=== PATIENT | male | born 1995 | race Caucasian/White ===

== ENCOUNTER 2024-11-17 16:38 | Outpatient (OUT) | payer BC, SELFPAY | END 2024-11-17 16:39 | disposition home or self-care (01) | LOC: LAB 16:41 | PROVIDERS: PCP Family Medicine; Visit Provider Family Medicine | DX: M25.539 Pain in unspecified wrist (principal) | CPT/HCPCS: 36415; 86695; 86696 ==

== ENCOUNTER 2025-07-06 07:56 | Outpatient (OUT) | payer BC, SELFPAY ==
--- OUTSIDE RECORDS SUMMARY | 2025-07-06 08:04 | XMS_ITS | Clinical Summary ---
Author Organization [facility] tem Address [id number] [address] [place] [address] Care Team Providers Care Natural Resources Extension Educator Name Role Phone Fab Thao MD Primary Care Provider [phone] Allergies No known active allergies Medications MedicationSigDispense QuantityRefillsLast FilledStart DateEnd DateStatus ondansetron ODT (ZOFRAN-ODT) 4 mg disintegrating tablet Dissolve 1 tablet (4 mg total) on tongue every 8 (eight) hours as needed for nausea for up to 10 doses. 10 tablet 09/15/2019Active Social History Tobacco UseTypesPacks/DayYears UsedDateSmoking Tobacco: Every DayCigarettes0.3 0.5Smokeless Tobacco: NeverAlcohol UseStandard Drinks/WeekCommentsNot Currently0 (1 standard drink = 0.6 oz pure alcohol)ChildcareAnswerDate RecordedChildcare Lueozfo3202/23/2019EmploymentAnswerDate KrxfxiejQzlmbczpbhIshzuja12/12/2019Purpose - LifeAnswerDate RecordedPurpose and direction in ddktTzzwfyt72/11/2021Sex and Gender InformationValueDate RecordedSex Assigned at BirthNot on fileLegal Sex Male04/19/2015 11:53 AM EDTGender IdentityNot on fileSexual OrientationNot on file Last Filed Vital Signs Vital SignReadingTime TakenCommentsBlood Rkinyaeg782/76009/15/2019 6:12 PM EST Gzlzd348209/15/2019 6:12 PM BAVZainbaixwjg86.8 ??C (98.3 ??F)09/15/2019 5:07 PM ESTRespiratory Hjib352309/15/2019 6:12 PM ESTOxygen Zxydrxegdp323%09/15/2019 6:12 PM ESTInhaled Oxygen Concentration--Wygpsv65.2 kg (212 lb)09/15/2019 5:07 PM EST Fgssjq820.7 cm (5' 8 )09/15/2019 5:07 PM ESTBody Mass Index32.23009/15/2019 5:07 PM EST Plan of Treatment Health MaintenanceDue DateLast DoneCommentsDepression Dfjknavaa82/24/2009Tobacco Xhvcbnmfj13/24/2009dult BMI Cxibffzhu55/24/2015DTaP,Tdap and Td Vaccines (1 - Tdap)2016Influenza Ahrdoti5305/15/2025 Medical Devices Not on file Insurance Care Teams Team MemberRelationshipSpecialtyStart DateEnd Date Fab Thao MD [facility] - [facility]06/05/18
[2025-07-06 08:33] LABS: Hematocrit 48.0 % (42.0-54.0); Hemoglobin 16.1 g/dL (14.0-18.0); Immature Granulocytes Abs Auto 0.01 10^3/uL (0.00-0.03); Immature Granulocytes Pct Auto 0.1 % (0.0-0.5); Lymphocytes Absolute Auto 2.5 10^3/uL (1.2-3.8); Mean Corpuscular HGB Conc 33.5 g/dL (29.9-35.2); Mean Corpuscular Hemoglobin 31.1 pg (25.9-34.0); Mean Corpuscular Volume 92.8 fL (80.0-94.0); Platelet Count 310 10^3/uL (150-450); Red Blood Count 5.17 10^6/uL (4.70-6.10); White Blood Count 6.9 10^3/uL (4.0-11.0)
--- NOTE | 2025-07-06 08:38 | XR_ITS ---
The [address] [address] Patient Name: CECE LINDQUIST MRN: [id number] date: 1995 Sex: M Assigned Patient Location: LAB Current Patient Location: LAB Accession/Order Number: [id number] Exam Date: 07/06/2025 08:50 Report Date: 07/06/2025 09:40 At the request of: RAMANA MAURO MD Procedure: XR cervical spine 2-3V CERVICAL SPINE - 3 views: CLINICAL HISTORY: Chronic bilateral arm tingling, blurred vision and headaches. COMPARISON: None AP, lateral and odontoid views were obtained. There is straightening of the normal cervical lordosis. There is no evidence of compression fracture or displacement. The disc spaces are uniform. No hypertrophy is seen. The atlantoaxial relationship is maintained. There is no prevertebral soft tissue swelling. XR/XR cervical spine 2-3V IMPRESSION: LOSS OF NORMAL CERVICAL LORDOSIS. NO ACUTE BONY FINDINGS. Impression dictated by: Moira Patterson M.D. 07/06/2025 9:40 AM Dictation Location: [place] [address] Electronically authenticated by: [id number] Y Date: 07/06/2025 09:40
[2025-07-06 08:54] LABS: Alanine Aminotransferase 24 U/L (16-63); Albumin Globulin Ratio 1.5; Albumin Level 4.2 g/dL (3.4-5.0); Alkaline Phosphatase 53 U/L (46-116); Anion Gap 11.7; Aspartate Amino Transferase 9 U/L (15-37); Blood Urea Nitrogen 10.0 mg/dL (7.0-18.0); Calcium 8.7 mg/dL (8.5-10.1); Carbon Dioxide 28.4 mmol/L (21.0-32.0); Chloride 103 mmol/L (98-107); Cholesterol 173 mg/dL (<=200); Estimated GFR (African America >60 (>=60 mL/min/1.73m^2); Estimated GFR (Non-African Ame >60 (>=60 mL/min/1.73m^2); Free T3 2.64 pg/mL (2.18-3.98); Globulin 2.8 g/dL; Glucose 92 mg/dL (74-106); HDL Cholesterol 55 mg/dL (40-60); Potassium 4.1 mmol/L (3.5-5.1); Sodium 139 mmol/L (136-145); Thyroid Stimulating Hormone 1.130 uIU/mL (0.358-3.740); Total Protein 7.0 g/dL (6.4-8.2); Triglycerides 113 mg/dL (<=150); VLDL CHOLESTEROL 22.6 mg/dL
== END 2025-07-06 07:57 | disposition home or self-care (01) ==
LOC: LAB 08:01
PROVIDERS: PCP Family Medicine; Visit Provider Family Medicine
DX: H53.2 Diplopia (principal); R41.82 Altered mental status, unspecified; R20.2 Paresthesia of skin
CPT/HCPCS: 36415; 72040; 80053; 80061; 82533; 83036; 83525; 84436; 84443; 84481; 85025

== ENCOUNTER 2025-07-18 14:14 | Outpatient (OUT) | payer BC, SELFPAY ==
--- OUTSIDE RECORDS SUMMARY | 2025-07-05 08:45 | XMS_ITS ---
Author Organization [facility] in [place] Address [address] [place] [address] Care Team Providers Care Clinical Supervisor Name Role Phone Grant Mauro Primary Care Provider Allergies No Known Allergies Results Component Value Reference Range Notes CORTISOL AM Reviewed date:07/08/2025 03:25:45 PM Interpretation: Performing Lab: Notes/Report: [facility] , Cortisol - AM 11.6 6.2-19.4 ug/dL Performed at: - [facility] [address] [id number] Poultry Boner: Yasmany Sauceda PhD, Phone: [phone] Performing Lab: see note LC - [facility] LBXR cervical spine 2-3V Reviewed date:07/06/2025 12:20:45 PM Interpretation: Performing Lab: Notes/Report: Source Facility: [place] [address] [place] [address] XRay Report Signed Patient: CECE CUELLO MR#: [id number] : 1995 Acct:[id number] Age/Sex: 30 / M ADM Date: 07/06/25 Loc: LAB Attending Dr: Ramana Mauro M.D. Ordering Physician: Ramana Mauro M.D. Date of Service: 07/06/25 Procedure(s): XR cervical spine 2-3V Accession Number(s): [id number] cc: Ramana Mauro M.D. [place] [id number] Patient Name: CECE CUELLO MRN: [id number] date: 1995 Sex: M Assigned Patient Location: LAB Current Patient Location: LAB Accession/Order Number: [id number] Exam Date: 07/06/2025 08:50 Report Date: 07/06/2025 09:40 At the request of: RAMANA MAURO MD Procedure: XR cervical spine 2-3V CERVICAL SPINE - 3 views: CLINICAL HISTORY: Chronic bilateral arm tingling, blurred vision and headaches. COMPARISON: None AP, lateral and odontoid views were obtained. There is straightening of the normal cervical lordosis. There is no evidence of compression fracture or displacement. The disc spaces are uniform. No hypertrophy is seen. The atlantoaxial relationship is maintained. There is no prevertebral soft tissue swelling. XR/XR cervical spine 2-3V IMPRESSION: LOSS OF NORMAL CERVICAL LORDOSIS. NO ACUTE BONY FINDINGS. Impression dictated by: Moira Patterson M.D. 07/06/2025 9:40 AM Dictation Location: [place] [address] Electronically authenticated by: [id number] Y Date: 07/06/2025 09:40 Dictated By: Moira Patterson M.D. Signed By: 07/06/2543 DD/ 9 TD/TT: Stack Yield Engineer: REASON FOR VISIT Cognitive Issues, Slow ability to think Medications Medication SIG (Take, Route, Frequency, Duration) Notes Start Date End Date Status Adderall 5 MG 1 tablet Orally Twice a day 5Active Social History Tobacco Use: Social History Observation Description Date Details (start date - stop date) Never Smoker NA - NA Tobacco Control (Standard) Question Answer Notes Tobacco use: Nonsmoker AUDIT-C (Standard) Question Answer Notes Did you have a drink containing alcohol in the p ast year? No Obvgjq5UbomulmriwjgsxZxhyygmgOoqhzrm Notes: Vapes daily Problems Problem Type SNOMED Code ICD Code Onset Dates Problem Status W/U Status Risk Notes Problem Double vision (34070796) Double vision (H 53.2) ActiveconfirmedProblemAltered mental status (065653076)Altered mental status (R41.82)ActiveconfirmedProblemParesthesia (95653368)Paresthesia (R20.2)Active confirmed Vital Signs Weight 170.0 lbs 07/05/2025 Height 67 in 07/05/2025 Blood pressure systolic 138 mm Hg 07/05/20 25 Blood pressure diastolic 82 mm Hg 025 BMI 26.62 kg/m2 07/05/2025 Encounters Encounter Location Date Provider Diagnosis [facility] [address] [place] [address] 07/05/2025 Grant Mauro Double vision H53.2 ; Altered mental status R41.82 and Paresthesia R20.2 Assessments Encounter Date Diagnosis (ICD Code) Assessment Notes Treatment Notes Treatment Clinical Notes Section Notes 07/05/2025 Double vision (ICD-10 - H53.2) 07/05/2025ltered mental status (ICD-10 - R41.82)07/05/2025Paresthesia (ICD-10 - R20.2) Plan Of Treatment Pending Test Test Name Order Date HEMOGLOBIN A1C (GLYCO) 07/05/2025 INSULIN, TOTAL 07/05/2025 LIPID PANEL (CHOL/TRIG/HDL/LDL) 07/05/20 25 MRI BRAIN WO W CON 07/05/2025 THYROID PANEL (T4/TSH/FREE T3) 5 CMP (COMP MET QUEEN) w/eGFR CKD-EPI 2024 CBC WITH DIFF 07/05/2025 Progress Notes * Cece CUELLO XDOB:[birth year] (30 yo M)Acc No.[id number]:07/05/2025 Progress Note Patient: Cece TAN :?Ramana Mauro ([facility]), MDDOB:1995???Age: 30 Y???Sex:MaleDate:07/05/2025Phone:[phone]:[address], [address] [facility], [place], [place]Awnwp In:01:44 PM ESTCheck Out:02:39 PM EST Subjective: * Chief Complaints: * C ognitive IssuesSlow ability to think * HPI: ???General:? diffiulty focusing and concentrating -? notices it more since has been clean from thc has episodse - doubmita dyeron and sig clayton. * ROS: ???EENT:?hearing changes?denies, denies.?visual changes?denies, denies.?non-healing mouth sores?denies, denies.?swollen glands or neck lumps denies, denies.?hoarseness?denies, denies.?sore throat?denies, denies.?difficulty swallowing?denies, denies.?nose bleeds?denies, denies.?nasal congestion?denies, denies.?ear ache?denies, denies.?ear discharge?denies, denies. ringing in ears?denies, denies.?light sensitivity?denies, denies.?eye pain denies, denies.?blurring?denies, denies.?eye irritation?denies, denies.?double vision?denies, denies.?vision loss?denies, denies.?General/Constitutional:?Sweats:?Denies, Denies.?Fatigue?denies, denies. Sleep problems?denies, denies.?Anorexia?denies, denies.?Malaise?denies, denies.?Weight loss?denies, denies.?Fatigue or Weakness?denies, denies.?Fever or Chills?denies, denies.?Cardiovascular:?Shortness of Breath w/lying flat?denies, denies.?Light headedness/dizziness?denies, denies.?Chest tightness/ heavy pressure?denies, denies. Swelling of legs, ankles, or feet?denies, denies.?Waking up with shortness of breath denies, denies.?Chest pain?denies, denies.?Palpitations?denies, denies. Weight gain?denies, denies.?Respiratory:?Chronic or frequent cough?denies, denies.?Coughing upblood?denies, denies.?Difficulty breathing?denies, denies.?Productive cough denies, denies.?Snoring?denies, denies.?Shortness of breath that awakens from sleep (PND)?denies, denies.?Chest pain?denies, denies.?Sputum production?denies, denies.?Wheezing?denies, denies.?Musculoskeletal:?Joint pain?denies, denies.?Joint Fluid?denies, denies.?Back pain?denies, denies.?Knee pain?denies, denies.?Neck pain?denies, denies.?Joint Stiffness?denies, denies.?Muscle cramps?denies, denies. Weakness of muscles?denies, denies.?Arthritis?denies, denies.?Muscle aches denies, denies.?Pain in shoulder(s)?denies, denies.?Swollen joints?denies, denies.? * Active Problem List F90.9 ADHD Modified On:11/17/2024/U Status:ulwgjhxzcO62.539Wrist pain Modified On:11/17/2024/U Status:iwgtfdwxiO94.2Double vision Modified On:07/05/2025/U Status:iehyueqfbC06.82Altered mental status Modified On:07/05/2025/U Status:rlzcvgrplL37.2Paresthesia Modified On:07/05/2025/U Status:confirmed * Medical History: * Surgical History: N o Surgical History documented. * Hospitalization/Major Diagno stic Procedure: D enies Past Hospitalization * Family History: F ather: alive. M other: alive. B rother(s): alive. S ister(s): alive. 1 brother(s) , 2 sister(s) - healthy. . Strokes run in the family. * Social History: ???Tobacco Use:?Tobacco Control (Standard)?Tobacco use:?Nonsmoker ?Electronic Cigarette use?Current user?Yes vape ???Drug/Alcohol:?AUDIT-C (Standard)?Did you have a drink containing alcohol in the past year??No ?Points?0 ?Interpretation?Negative ???Vapes daily. * Medications: T akingAdderall(Amphetamine-Dextroamphetamine) 5 MG Tablet 1 tablet Orally Twice a day Taking Adderall(Amphetamine-Dextroamphetamine) 5 MG Tablet 1 tablet Orally Twice a day DiscontinuedpredniSONE 20 MG Tablet 3 tablets Orally Once a day Medication List reviewed and reconciled with the patientDiscontinued predniSONE 20 MG Tablet 3 tablets Orally Once a day Medication List reviewed and reconciled with the patient * Allergies: N .K.D.A.no[Allergies Verified] Objective: * Vitals: W t:170.0lbs, Ht: 67 in, BP:138/82mm Hg, BMI:26.62Index, Ht-cm: 170.18 cm, Wt-k.11 kg. * Examination: ???Physical Exam: ?GENERAL:?well developed, well nourished, in no acute distress , well developed, well nourished, in no acute distress.?HEAD:?normocephalic/atraumatic , normocephalic/atraumatic. ?EYES:?pupils equal, round and reactive to light, conjunctivae and sclerae normal , pupils equal, round and reactive to light, conjunctivae and sclerae normal. ?EARS:?no deformity or lesion of external ear, canals and TM appear normal bilaterally, TM's intact, not inflamed with normal light reflex, hearing grossly normal to conversational speech , no deformity or lesion of external ear, canals and TM appear normal bilaterally, TM's intact, not inflamed with normal light reflex, hearing grossly normal to conversational speech.?NOSE:?no deformity, discharge, inflammation, or lesions , no deformity, discharge, inflammation, or lesions.?MOUTH:?mucous membranes moist, normal oropharynx and posterior pharynx without lesions or exudates, tongue normal, dentition normal , mucous membranes moist, normal oropharynx and posterior pharynx without lesions or exudates, tongue normal, dentition normal.?NECK:?neck supple, no masses or palpable cervical nodes, trachea midline, thyroid without nodules, masses, tenderness, or enlargement , neck supple, no massesor palpable cervical nodes, trachea midline, thyroid without nodules, masses, tenderness, or enlargement.?CHEST:?no chest wall deformity, no chest wall tenderness ,no chest wall deformity, no chest wall tenderness.?LUNGS:?normal respiratory effort and clear to auscultation, no wheezes, rales, or rhonchi, good air exchange , normal respiratory effort and clear to auscultation, no wheezes, rales, or rhonchi, good air exchange.?CARDIO:?regular rate and rhythm, normal S1 and S2, nor murmur, rub, or gallop , regular rate and rhythm, normal S1 and S2, nor murmur, rub, or gallop.?PULSES:?normal capillary refill , normal capillary refill. ?ABDOMEN:?soft, non-distended, non-tender, no masses , soft, non-distended, non-tender, no masses.?MUSCULOSKELETAL:?no deformity or scoliosis noted, normal range of motion, joints normal, no erythema, edema, effusion, or ecchymosis , no deformity or scoliosis noted, normal range of motion, joints normal, no erythema, edema, effusion, or ecchymosis.?EXTREMITY:?no clubbing, cyanosis, edema, or deformity withnormal ROM in both upper and lower bilateral extremities , no clubbing, cyanosis, edema, or deformity with normal ROM in both upper and lower bilateral extremities.?NEUROLOGIC:?grossly normal , grossly normal.?SKIN:?no rashes, ulcerations, or suspicious lesions , no rashes, ulcerations, or suspicious lesions.?LYMPH NODES:?no cervical adenopathy, nodes normal , no cervical adenopathy, nodes normal.?MENTAL STATUS:?alert and oriented x3, normal mood and affect , alert and oriented x3, normal mood and affect.? Assessment: * Assessment: 1.?Double vision - H53.2 (Primary)???2.?Altered mental status - R41.82&#160 ;??3.?Paresthesia - R20.2??? Plan: * Treatment: ?LAB: HEMOGLOBIN A1C (GLYCO) ?LAB: INSULIN, TOTAL ?LAB: LIPID PANEL (CHOL/TRIG/HDL/LDL) ?LAB: THYROID PANEL (T4/TSH/FREE T3) ?LAB: CMP (COMP MET QUEEN) w/eGFR CKD-EPI ?LAB: CBC WITH DIFF ?LAB: CORTISOL AM (Collection Date & Time - 07/06/2025 08:21 AM) ?Imaging: MRI BRAIN WO W CON* COncerning for MS flare ?Imaging: XR cervical spine 2-3V (Performed Date - 07/06/2025)2.?Altered mental status?LAB: HEMOGLOBIN A1C (GLYCO) ?LAB: INSULIN, TOTAL ?LAB: LIPID PANEL (CHOL/TRIG/HDL/LDL) ?LAB: THYROID PANEL (T4/TSH/FREE T3) ?LAB: CMP (COMP MET QUEEN) w/eGFR CKD-EPI ?LAB: CBC WITH DIFF ?Imaging: MRI BRAIN WO W CON* COncerning for MS flare ?Imaging: XR cervical spine 2-3V (Performed Date - 07/06/2025)3.?Paresthesia ?LAB: HEMOGLOBIN A1C (GLYCO) ?LAB: INSULIN, TOTAL ?LAB: LIPID PANEL (CHOL/TRIG/HDL/LDL) ?LAB: THYROID PANEL (T4/TSH/FREE T3) ?LAB: CMP (COMP MET QUEEN) w/eGFR CKD-EPI ?LAB: CBC WITH DIFF ?Imaging: MRI BRAIN WO W CON* COncerning for MS flare ?Imaging: XR cervical spine 2-3V (Performed Date - 07/06/2025) * Labs: * L ab: CORTISOL AM (Collection Date & Time - 07/06/2025 08:21 AM) * Procedure Codes: * Preventive Medicine: ??Screenings/Counseling:?BMI ACTION PLAN?Above Normal BMI Follow-up?Dietary management education, guidance, and counseling * * Sign off status: CompletedVisit Status:?CHK (Check Out) true * Provider: Claudia Mauro (TTC)MD Date: 1 Generated for Printing/Faxing/eTransmitting on:?07/18/2025 02:19 PM EST History and Physical Notes * HPI (History of Present Illness) CategorySub-CategoryDetailNotesCategory NotesGeneral diffiulty focusing and concentrating - notices it more since has been clean from thc has episodse - doubje vison and sig weaknes Examination CategorySub-CategoryDetailNotesCategory NotesPhysical ExamGENERAL:well developed, well nourished, in no acute distress , well developed, well nourished, in no acute distressHEAD:normocephalic/atraumatic , normocephalic/atraumaticEYES:pupils equal, round and reactive to light, conjunctivae and sclerae normal , pupils equal, round and reactive to light, conjunctivae and sclerae normalEARS:no deformity or lesion of external ear, canals and TM appear normal bilaterally, TM's intact, not inflamed with normal light reflex, hearing grossly normal to conversational speech , no deformity or lesion of external ear, canals and TM appear normal bilaterally, TM's intact, not inflamed with normal light reflex, hearing grossly normal to conversational speechNOSE:no deformity, discharge, inflammation, or lesions , no deformity, discharge, inflammation, or lesionsMOUTH:mucous membranes moist, normal oropharynx and posterior pharynx without lesions or exudates, tonguenormal, dentition normal , mucous membranes moist, normal oropharynx and posterior pharynx without lesions or exudates, tongue normal, dentition normalNECK:neck supple, no masses or palpable cervical nodes, trachea midline, thyroid without nodules, masses, tenderness, or enlargement , neck supple, no masses or palpable cervical nodes, trachea midline, thyroid without nodules, masses, tenderness, or enlargementCHEST:no chest wall deformity, no chest wall tenderness , no chest wall deformity, no chest wall tendernessLUNGS:normal respiratory effort and clear to auscultation, no wheezes, rales, or rhonchi, good air exchange , normal respiratory effort and clear to auscultation, no wheezes, rales, or rhonchi, good air exchangeCARDIO:regular rate and rhythm, normal S1 and S2, nor murmur, rub, or gallop , regular rate and rhythm, normal S1 and S2, nor murmur, rub, or gallopPULSES:normal capillary refill , normal capillary refillABDOMEN:soft, non- distended, non-tender, no masses , soft, non-distended, non-tender, no masses RECTAL:MUSCULOSKELETAL:no deformity or scoliosis noted, normal range of motion, joints normal, no erythema, edema, effusion, or ecchymosis , no deformity or scoliosis noted, normal range of motion, joints normal, no erythema, edema, effusion, or ecchymosisEXTREMITY:no clubbing, cyanosis, edema, or deformity with normal ROM in both upper and lower bilateral extremities , no clubbing, cyanosis, edema, or deformity with normal ROM in both upper and lower bilateral extremitiesNEUROLOGIC:grossly normal , grossly normalSKIN:no rashes, ulcerations, or suspicious lesions , no rashes, ulcerations, or suspicious lesionsLYMPH NODES:no cervical adenopathy, nodes normal , no cervical adenopathy, nodes normalMENTAL STATUS:alert and oriented x3, normal mood and affect , alert and oriented x3, normal mood and affect
--- OUTSIDE RECORDS SUMMARY | 2025-07-06 07:20 | XMS_ITS ---
Author Organization [facility] in [place] Address [address] [place] [address] Care Team Providers Care Dealer Compliance Representative Name Role Phone Jose CruzadiliaGrant Primary Care Provider [phone] REASON FOR VISIT Xray/ Lab results Medications Medication SIG (Take, Route, Frequency, Duration) Notes Start Date End Date Status Mysoline 50 MG 1 tablet Orally Once a day; Dura tion: 30 days 5Active Encounters Encounter Location Date Provider Diagnosis [address] [address] 07/06/2025 Grant Thao Plan Of Treatment Medication Medication Name Sig Start Date Stop Date Notes Mysoline 50 MG 1 tablet Orally Once a day; Duration: 3 0 days 07/06/2025 Progress Notes * Andrei CUELLODOB:[birth year] (30 yo M)Acc No.[id number]:07/06/2025 Patient:?Andrei CUELLO :1995???Age:30 Y???Sex:MalePhone:[phone] Address:[address], [place], [address] * Refills Start Mysoline Tablet, 50 MG, Orally, 30 Tablet, 1 tablet, Once a day, 30 days, Refills=11 Subjective: * Chief Complaints: * X ray/ Lab results * Medical History: * Surgical History: * Hospitalization/Major Diagno stic Procedure: * Medications: Objective: * Vitals: * Physical Examination: ??? Assessment: Plan: * Treatment: Start Mysoline Tablet, 50 MG, 1 tablet, Orally, Once a day, 30 days, 30 Tablet, Refills 11.? * Procedure Codes: * true * Date:?Generated for Printing/Faxing/eTransmitting on:?07/18/2025 02:19 PM EST
--- OUTSIDE RECORDS SUMMARY | 2025-07-18 14:19 | XMS_ITS | Clinical Summary ---
Author Organization [facility] tem Address [id number] [address] [place] [address] Care Team Providers Care Concrete Boom Operator Name Role Phone Fab Thao MD Primary Care Provider [phone] Allergies No known active allergies Medications MedicationSigDispense [...] drink = 0.6 oz pure alcohol)ChildcareAnswerDate RecordedChildcare Shptctq9702/23/2019EmploymentAnswerDate RclczqszFbvdtrtksgYzpgpvy18/12/2019Purpose - LifeAnswerDate RecordedPurpose and direction in osmwOagdizm37/11/2021Sex and Gender InformationValueDate RecordedSex Assigned at BirthNot on fileLegal Sex Male04/19/2015 11:53 AM EDTGender IdentityNot on fileSexual OrientationNot on file Last Filed Vital Signs Vital SignReadingTime TakenCommentsBlood Svuytgis729/76009/15/2019 6:12 PM EST Tispm595609/15/2019 6:12 PM OKVMlerzqvsmin85.8 ??C (98.3 ??F)09/15/2019 5:07 PM ESTRespiratory Txuv453509/15/2019 6:12 PM ESTOxygen Hjdflzvffr485%09/15/2019 6:12 PM ESTInhaled Oxygen Concentration--Mfucss49.2 kg (212 lb)09/15/2019 5:07 PM EST Rgpkkk155.7 cm (5' 8 )09/15/2019 5:07 PM ESTBody Mass Index32.23009/15/2019 5:07 PM EST Plan of Treatment Health MaintenanceDue DateLast DoneCommentsDepression Syuzuosqr58/24/2009Tobacco Evinkafpd18/24/2009dult BMI Jzrmuzjjk06/24/2015DTaP,Tdap and Td Vaccines (1 - Tdap)2016Influenza Ziikrds9205/15/2025 Medical Devices Not on file Insurance Care Teams Team MemberRelationshipSpecialtyStart DateEnd Date Fab Thao MD [facility] - [facility]06/05/18
--- OUTSIDE RECORDS SUMMARY | 2025-07-18 14:19 | XMS_ITS | Patient Health Record ---
Author Organization [facility] in [place] Address [address] [place] [address] Care Team Providers Care Resource Conservationist Name Role Phone Grant Mauro Primary Care Provider Allergies No Known Allergies Results Component Value Reference Range Notes CORTISOL AM Reviewed date:07/08/2025 03:25:45 PM Interpretation: Performing Lab: Notes/Report: [facility] , Cortisol - AM 11.6 6.2-19.4 ug/dL Performed at: - [facility] [address] [id number] Microfilm Clerk: Yasmany Sauceda PhD, Phone: [phone] Performing Lab: see note LC - [facility] LBXR cervical spine 2-3V Reviewed date:07/06/2025 12:20:45 PM Interpretation: Performing Lab: Notes/Report: Source Facility: [place] [address] XRay Report Signed Patient: CECE CUELLO MR#: [id number] : 1995 Acct:[id number] Age/Sex: 30 / M ADM Date: 07/06/25 Loc: LAB Attending Dr: Ramana Mauro M.D. Ordering Physician: Ramana Mauro M.D. Date of Service: 07/06/25 Procedure(s): XR cervical spine 2-3V Accession Number(s): [id number] cc: Ramana Mauro M.D. The [place] [address] Patient Name: CECE CUELLO MRN: [id number] date: 1995 Sex: M Assigned Patient Location: LAB Current Patient Location: LAB Accession/Order Number: [id number] Exam Date: 07/06/2025 08:50 Report Date: 07/06/2025 [...] Patterson M.D. 07/06/2025 9:40 AM Dictation Location: [place] [address] Electronically authenticated by: [id number] Y Date: 07/06/2025 09:40 Dictated By: Moira Patterson M.D. Signed By: 07/06/2543 DD/ TD/TT: Wood Floor Refinisher:CBC AUTO DIFF Reviewed date:07/06/2025 12:20:45 PM Interpretation: Performing Lab: Notes/Report: [facility] ,White Blood Count6.94.0-11.0 10 3/uLRed Blood Count5.174.70-6.10 10 6/uL Gcilkwohcn89.114.0-18.0 g/iVFiozoiidhb98.042.0-54.0 %Mean Corpuscular Lxqdat63.8 80.0-94.0 fLMean Corpuscular Wnxbbwkoiw36.125.9-34.0 pgMean Corpuscular HGB Conc 33.529.9-35.2 g/dLRed Cell Distribution Width12.511.0-15.0 %Platelet Dvabo038 150-450 10 3/uLMean Platelet Volume8.79.5-13.5 fLNeutrophils Percent Auto52.5 43.0-75.0 %Lymphocytes Percent Auto35.820.5-60.0 %Monocytes Percent Auto9.71.7- 12.0 %Eosinophils Percent Auto1.20.9-7.0 %Basophils Percent Auto0.70.2-2.0 % Immature Granulocytes Pct Auto0.10.0-0.5 %Neutrophils Absolute Auto3.61.4-6.5 10 3/uLLymphocytes Absolute Auto2.51.2-3.8 10 3/uLMonocytes Absolute Auto0.70.3-0.8 10 3/uLEosinophils Absolute Auto0.10.0-0.7 10 3/uLBasophils Absolute Auto0.10.0- 0.1 10 3/uLImmature Granulocytes Abs Auto0.010.00-0.03 10 3/uLPerforming Lab:see [facility]The [facility] LBFREE T3 Reviewed date:07/06/2025 12:20:45 PM Interpretation: Performing Lab: Notes/Report: [facility] ,Free T32.642.18-3.98 pg/mLPerforming Lab:see [facility] LB GLYCOHEMOGLOBIN A1C Reviewed date:07/06/2025 12:20:45 PM Interpretation: Performing Lab: Notes/Report: [facility] ,Glycohemoglobin A1C5.04.5-6.2 % ADA RECOMMENDED LIMIT 4.0 - 6.0 ADA THERAPEUTIC TARGET < 7.0 ACTION SUGGESTED > 7.0 Estimated Average Bifozug75Ufgfvyeitj Lab:see [facility] LB INSULIN Reviewed date:07/11/2025 07:35:51 PM Interpretation: Performing Lab: Notes/Report: [facility] ,Insulin3.62.6-24.9 uIU/mL Performed at: [facility] [address] [id number] Microfilm Clerk: Yasmany Sauceda PhD, Phone: [phone] Performing Lab:see note - [facility] LBLIPID PROFILE Reviewed date:07/06/2025 12:20:45 PM Interpretation: Performing Lab: Notes/Report: [facility] ,Lnoltojjdvrzh969<=150 mg/tYJlrdcswulht928<=200 mg/dLHDL Fopmieafnof7060-44 mg/dL > or =60 mg/dl - LOW CARDIOVASCULAR RISK <40 mg/dl - HIGH CARDIOVASCULAR RISK LDL Cholesterol Zyyzvcrhwv90.4 <100 mg/dl OPTIMAL 100-129 mg/dl NEAR OR ABOVE OPTIMAL 130-159 mg/dl BORDERLINE HIGH 160-189 mg/dl HIGH >190 mg/dl VERY HIGH VLDL ITVDWMCYRCM80.6Chol HDL Ratio3.1 3.3 - 4.4 LOW RISK 4.4 - 7.1 AVERAGE RISK 7.1 - 11.0 MODERATE RISK >11.0 HIGH RISK Performing Lab:see noteML - [facility] LBPROF 14(COMP METB) Reviewed date:07/06/2025 12:20:45 PM Interpretation: Performing Lab: Notes/Report: [facility] ,Ioogjy894009-850 mmol/LPotassium4.13.5-5.1 mmol/PYhnujysr09144-575 mmol/LCarbon Yxvbhhr39.421.0-32.0 mmol/LAnion Gap11.0Yryuneu3348-529 mg/dLBlood Urea Nitrogen 10.07.0-18.0 mg/dLCreatinine0.720.70-1.30 mg/dLEstimated GFR ( Alise>60 >=60 mL/min/1.73m 2Estimated GFR (Non- Lynsey>60>=60 mL/min/1.73m 2BUN Creatinine Ratio13.7Bmaazrr9.78.5-10.1 mg/dLBilirubin Total0.60.2-1.0 mg/dL Aspartate Amino Gzexhxkzsht898-60 U/LAlanine Zpditqacuteowgnz4376-89 U/LAlkaline Gkyrkmsdoro7275-767 U/LTotal Protein7.06.4-8.2 g/dLAlbumin Level4.23.4-5.0 g/dL Globulin2.8Albumin Globulin Ratio1.5Performing Lab:see noteML - [facility] LBT4 Reviewed date:07/06/2025 12:20:45 PM Interpretation: Performing Lab: Notes/Report: [facility] ,T4 Thyroxine6.704.50-12.10 ug/dLPerforming Lab:see noteML - [facility] LBTSH Reviewed date:07/06/2025 12:20:45 PM Interpretation: Performing Lab: Notes/Report: [facility] ,Thyroid Stimulating Hormone1.1300.358-3.740 uIU/mLPerforming Lab:see noteML - [facility] LBLAB TESTING Reviewed date:11/20/2024 10:16:57 AM Interpretation: Performing Lab: Notes/Report: [id number] Herpes Simplex Virus (HSV) Types 1 and 2-Specific Antibodies [facility] ,Miscellaneous TestCOMMENT. Test Ordered: [id number] HSV 1 and 2 Ab, IgG HSV 1 IgG, Type Spec Note: CB Non Reactive Reference Range: Non Reactive Please note reference interval change HSV-1 IgG testing performed using the [employer] HSV-1 IgG assay. HSV 2 IgG, Type Spec Note: CB Non Reactive Reference Range: Non Reactive Please note reference interval change Current guidelines and recommendations do not recommend routine screening for HSV-2 in asymptomatic individuals, including those that are . The detection of HSV-2 IgG antibodies in a single sample indicates previous exposure to HSV-2 but does not give information as to the site of HSV infection or the timing of exposure. The predictive value of positive and negative results depends on the population's prevalence and the pretest likelihood of HSV-2. HSV-2 IgG testing performed using the [employer] HSV-2 IgG assay. Performed at: [address] [id number] Microfilm Clerk: Yasmany Sauceda PhD, Phone: [phone] Performing Lab:[facility] For Referral No Information Medications Medication SIG (Take, Route, Frequency, Duration) Notes Start Date End Date Status Mysoline 50 MG 1 tablet Orally Once a day; Dura tion: 30 days 5ActiveAdderall 5 MG1 tablet Orally Twice a day5Active Social History Tobacco Use: Social History Observation Description Date Details (start date - stop date) Never Smoker NA - NA Tobacco Control (Standard) Question Answer Notes Tobacco use: Nonsmoker AUDIT-C (Standard) Question Answer Notes Did you have a drink containing alcohol in the p ast year? No Hwmref1ZgosewieobjrqhXwnuqfnyOymrlxq Notes: Vapes daily Vapes daily Problems Problem Type SNOMED Code ICD Code Onset Dates Problem Status W/U Status Risk Notes Problem Paresthesia (63093467) Paresthesia (R20.2 ) ActiveconfirmedProblemWrist pain (91449296)Wrist pain (M25.539)Activeconfirmed ProblemDouble vision (43550424)Double vision (H53.2)ActiveconfirmedProblem Altered mental status (205357628)Altered mental status (R41.82)Activeconfirmed ProblemAttention deficit hyperactivity disorder (799600126)ADHD (F90.9)Active confirmed Vital Signs Blood pressure diastolic 82 mm Hg 07/05/2025 Tohmia61 in07/05/2025lood pressure lzpqoqhk692 mm Hg07/05/20255174Xpfppk583.0 lbs 07/05/2025BMI26.62 kg/m207/05/2025 Encounters Encounter Location Date Provider Diagnosis [place] [address] [place] [address] 11/17/2024 Grant Hoy Wrist pain M25.539 [facility] [address] [place] [address] 07/05/2025 Grant Hoy Double vision H53.2 ; Altered mental status R41.82 and Paresthesia R20.2 [facility] [address] [place] [address] 11/20/2024 Grant Hoy [facility] [place] [address] 07/06/2025Doug Hoy Assessments Encounter Date Diagnosis (ICD Code) Assessment Notes Treatment Notes Treatment Clinical Notes Section Notes 11/17/2024 Wrist pain (ICD-10 - M25.539) 07/05/2025Double vision (ICD-10 - H53.2)07/05/2025ltered mental status (ICD-10 - R41.82)07/05/2025Paresthesia (ICD-10 - R20.2) Plan Of Treatment Pending Test Test Name Order Date HEMOGLOBIN A1C (GLYCO) 07/05/2025 INSULIN, TOTAL 07/05/2025 LIPID PANEL (CHOL/TRIG/HDL/LDL) 07/05/20 25 HERPES SIMPLEX 1,2 IGM AB (IFA) 11/18/19 25 HERPES SIMPLEX 1 or 2 IGG 11/17/2024 MRI BRAIN WO W CON 07/05/2025 THYROID PANEL (T4/TSH/FREE T3) CMP (COMP MET QUEEN) w/eGFR CKD-EPI 2024 CBC WITH DIFF 07/05/2025 Insurance Providers Payer Name Payer Address Payer Phone Subscriber Number Group Number Insured Name Patient Relationship to Insured Coverage Start Date Coverage End Date [employer] [address] [place] [address] [id number] Olivia Cuelloelf - patient is the insured Medical (General) History Medical History History ICD Code ADHD F90.9
--- NOTE | 2025-07-18 14:23 | MR_ITS ---
The [address] [address] Patient Name: CECE LINDQUIST MRN: [id number] date: 1995 Sex: M Assigned Patient Location: MRI Current Patient Location: Accession/Order Number: [id number] Exam Date: 07/18/2025 14:50 Report Date: 07/19/2025 10:50 At the request of: RAMANA MAURO MD Procedure: MR head/brain wo/w con MR head/brain wo/w con 07/18/2025 4:09 PM SIGN AND SYMPTOMS: Double Vision, Altered Mental Status, brain fog, history of multiple sclerosis PROTOCOL: Multiplanar multisequence MR images of the brain with and without IV contrast CONTRAST: 15 mL of intravenous Dotarem COMPARISON: None. FINDINGS: Extra axial spaces: Age appropriate. Hemorrhage: None. Ventricular system: Within normal limits. Basal cisterns: Within normal limits and not effaced. Cerebral parenchyma: Normal in signal. Midline shift: None.. Cerebellum: Within normal limits. Brainstem: Within normal limits. OTHER: Calvarium: Normal marrow signal. Vascular system: Satisfactory flow voids within the anterior and posterior circulation. Visualized Paranasal sinuses: Within normal limits. Visualized Orbits: Within normal limits. Visualized upper cervical spine: Within normal limits. 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 No acute intracranial pathology. No demyelinating plaques are visible on the current exam. Impression dictated by: Deacon Carranza M.D. 07/19/2025 10:50 AM Dictation Location: Always PreppedFORMERLY GROUP HEALTH COOPERATIVE CENTRAL HOSPITALUser Replay Electronically authenticated by: [id number] Y Date: 07/19/2025 10:50
== END 2025-07-18 14:15 | disposition home or self-care (01) ==
PROVIDERS: PCP Family Medicine; Visit Provider Family Medicine
DX: H53.2 Diplopia (principal); R41.82 Altered mental status, unspecified; R20.2 Paresthesia of skin; E23.6 Other disorders of pituitary gland
CPT/HCPCS: 70553; A9575